=== PATIENT | female | born 2005 | race Caucasian/White ===

== ENCOUNTER → 2024-07-11 | Outpatient (CLI) | payer OTHER ==
[~2024-07-11] MED LIST: ALBU8.5H7 IH; CETI10TA77 PO; CITA10TA8 PO; CITA20TA9 PO; FLUT9.9S NS; MOME13HF12 IH; TIOT18CA IH; TOPI25TA52 PO
== END | disposition home or self-care (01) ==
LOC: RAD 12:46
PROVIDERS: ATTEND Internal Medicine
DX: G43.111 Migraine with aura, intractable, with status migrainosus (principal); R42 Dizziness and giddiness
CPT/HCPCS: 93306; 93880

== ENCOUNTER → 2024-11-18 | Outpatient (CLI) | payer OTHER | END | disposition home or self-care (01) | LOC: LAB 12:12 | PROVIDERS: ATTEND Internal Medicine | DX: Z00.00 Encounter for general adult medical examination without abnormal findings (principal) | CPT/HCPCS: 36415; 84439; 84443 ==